=== PATIENT | male | born 1995 | race African-American/Black ===

== ENCOUNTER 2017-11-25 06:07 | Emergency (ER) | payer MEDICAID, OTHER ==
[~2017-11-25] VITALS: Ht 162.6 cm; Wt 80.0 kg
[2017-11-25] MEDS ORDERED: KETOROLAC 30MG/ML VIAL IV STA (08:28)
[2017-11-25] MEDS ORDERED: SODIUM CHLORIDE 0.9% 1,000 ML IV ONE (08:28)
[2017-11-25] MEDS ORDERED: AMPICILLIN SOD/SULBACTAM NA 1.5 G in SODIUM CHLORIDE 0.9% 50 ML IV SCH (08:30)
[2017-11-25] MEDS ORDERED: DEXAMETHASONE 10 MG/ML VIAL IM ONE (08:30)
[2017-11-25 09:03] LABS: HEMATOCRIT. 44.4 % (42.0-52.0); HEMOGLOBIN. 14.9 g/dL (14.0-18.0); MEAN CORPUSCULAR HEMOGLOBIN 28.2 pg (28.0-32.0); MEAN CORPUSCULAR VOLUME 84.1 fL (80.0-94.0); MEAN PLATELET VOLUME 8.7 fl (7.4-10.4); PLATELET 247 x1000/uL (130-400); RED BLOOD CELL COUNT 5.29 mill/uL (4.7-6.1); RED CELL DISTRIBUTION WIDTH 13.4 % (11.6-14.6)
[2017-11-25 09:07] LABS: CHLORIDE 102 mEq/L (98-107)
[2017-11-25 09:31] LABS: CLARITY URINE CLEAR (CLEAR); COLOR URINE YELLOW (YELLOW); KETONES URINE TRACE (NEGATIVE); LEUKOCYTE ESTERASE URINE NEGATIVE (NEGATIVE); NITRITE URINE NEGATIVE (NEGATIVE); OCCULT BLOOD URINE TRACE (NEGATIVE); PROTEIN URINE 2+ (NEGATIVE); SPECIFIC GRAVITY URINE 1.032 (1.005-1.030); UROBILINOGEN URINE 0.2 E.U./dL (0.2-1.0)
[2017-11-25 10:15] LABS: PLATELET ESTIMATE NORMAL
[2017-11-25] MEDS ORDERED: AMOXICILLIN/POTASSIUM CLAVULANATE 875/125MG TAB PO ONE (11:45)
[2017-11-25 12:22] VITALS: BP 133/78
== END 2017-11-25 12:28 | disposition home or self-care (01) ==
LOC: ER 06:07
DX: J02.0 Streptococcal pharyngitis (principal)
CPT/HCPCS: 36415; 80053; 81001; 85025; 87070; 87804; 96361; 96365; 96372; 96375; 99285; J0295; J1100; J1885; J7030; Z7610

== ENCOUNTER 2017-11-28 14:35 | Emergency (ER) | payer MEDICAID, OTHER ==
[~2017-11-28] VITALS: Ht 165.1 cm; Wt 78.0 kg
[2017-11-28 14:46] VITALS: BP 143/99
== END 2017-11-28 16:05 | disposition left against medical advice (07) ==
LOC: ER 15:09
DX: Z53.21 Procedure and treatment not carried out due to patient leaving prior to being seen by health care provider (principal)

== ENCOUNTER 2021-02-04 10:06 | Emergency (ER) | payer MEDICAID ==
[~2021-02-04] VITALS: Ht 165.1 cm; Wt 74.0 kg
[2021-02-04 10:40] VITALS: BP 137/76
== END 2021-02-04 10:41 | disposition home or self-care (01) ==
LOC: ER 10:06
DX: L59.9 Disorder of the skin and subcutaneous tissue related to radiation, unspecified (principal)
CPT/HCPCS: 99281

== ENCOUNTER 2022-02-18 18:35 | Emergency (ER) | payer MEDICAID ==
[~2022-02-18] VITALS: Ht 167.6 cm; Wt 76.0 kg
[2022-02-18 18:43] VITALS: BP 129/83
[2022-02-18] MEDS ORDERED: HYDR453.4 TP (20:39)
== END 2022-02-18 20:56 | disposition home or self-care (01) ==
LOC: ER 18:35
DX: R21 Rash and other nonspecific skin eruption (principal); S80.862A Insect bite (nonvenomous), left lower leg, initial encounter; W57.XXXA Bitten or stung by nonvenomous insect and other nonvenomous arthropods, initial encounter; Y93.89 Activity, other specified; Y92.89 Other specified places as the place of occurrence of the external cause; Y99.8 Other external cause status
CPT/HCPCS: 99281